=== PATIENT | female | born 1990 | race Native Hawaiian/Other Pacific Islander ===

== ENCOUNTER 2021-01-27 04:36 | Emergency (ER) | payer OTHER ==
[~2021-01-27] VITALS: Ht 157.5 cm; Wt 49.9 kg
[2021-01-27 04:43] VITALS: BP 119/66; TEMP 99.2
== END 2021-01-27 05:36 | disposition home or self-care (01) ==
LOC: ED 04:36
DX: S02.5XXA Fracture of tooth (traumatic), initial encounter for closed fracture (principal); X58.XXXA Exposure to other specified factors, initial encounter; Y92.89 Other specified places as the place of occurrence of the external cause
CPT/HCPCS: 99282

== ENCOUNTER 2021-11-27 10:20 | Emergency (ER) | payer OTHER ==
[~2021-11-27] VITALS: Ht 160 cm; Wt 51.3 kg
[2021-11-27 10:23] VITALS: BP 101/59; TEMP 96.8
== END 2021-11-27 11:48 | disposition home or self-care (01) ==
LOC: ED 10:20
DX: R30.0 Dysuria (principal)
CPT/HCPCS: 81002; 81015; 81025; 96372; 99283; J0696